=== PATIENT | female | born 1975 | race Caucasian/White ===

== ENCOUNTER 2016-03-22 11:36 | Outpatient (CLI) | payer OTHER ==
--- NOTE | 2016-03-22 12:31 | DIAGNOSTIC IMAGING REPORT ---
PROCEDURE: XR SHOULDER 2 OR MORE VW-RIGHT INDICATION: SPRAIN OF R ROTATOR CUFF CAPSULE TECHNIQUE: Three views. COMPARISON: None. FINDINGS: There is calcific tendonitis. There is no fracture or dislocation. IMPRESSION: 1. Calcific tendonitis
== END 2016-03-22 23:00 ==
LOC: XR SRH 11:36
DX: M75.31 Calcific tendinitis of right shoulder (principal)